=== PATIENT | female | born 1955 | race Caucasian/White ===

== ENCOUNTER 2021-11-19 12:58 | Outpatient (CLI) | payer OTHER, SELFPAY ==
--- NOTE | 2021-11-19 13:00 | MM_ITS ---
Patient: CONI HUDSON Facility:?[facility] Patient ID:?[id number] Site Patient ID:?[id number]. Site :?[id number] Study:?XRay-Breast Bilateral 3D W/CAD-11/19/2021 1:42:52 PM Ordering Physician:Norbert Sumner Final Report: BILATERAL MAMMOGRAM WITH COMPUTER-AIDED DETECTION AND TOMOSYNTHESIS TECHNIQUE: CC and MLO views were obtained. These mammographic images have been obtained using full-field digital technique. These mammographic images were interpreted with the benefit of computer-aided detection. Breast Tomosynthesis was used in this interpretation. COMPARISON FILM: 10/27/20, 10/16/19, 08/24/18. FINDINGS: There are scattered areas of fibroglandular density IMPRESSION: There is no radiographic evidence for malignancy. ASSESSMENT: BI-RADS Category 1: Negative RECOMMENDATION: Routine screening mammogram in 1 year. A lay language report of this examination will be provided to the patient. Jimbo Singleton M.D. Diagnostic/Musculoskeletal Radiologist [email or web address] MARYANNE/eduardo / be/Dictated by: Jimbo Singleton MD @ 11/22/2021 8:47:00 AM Signed by:?Jimbo Singleton MD @11/23/2021 8:01:53 AM (Electronic Signature)
== END 2021-11-19 12:59 | disposition home or self-care (01) ==
LOC: MAMMO 12:58
PROVIDERS: PCP Family Medicine; Visit Provider Family Medicine
DX: Z12.31 Encounter for screening mammogram for malignant neoplasm of breast
CPT/HCPCS: 77063; 77067

== ENCOUNTER 2022-12-02 07:40 | Outpatient (CLI) | payer MEDICARE, SELFPAY | END 2022-12-02 07:41 | disposition home or self-care (01) | LOC: NFLDREF 12:39 | PROVIDERS: PCP Family Medicine; Referring Provider Family Medicine; Visit Provider Family Medicine | DX: E78.5 Hyperlipidemia, unspecified (principal); R74.8 Abnormal levels of other serum enzymes; M85.80 Other specified disorders of bone density and structure, unspecified site | CPT/HCPCS: 80053; 80061; 82306 ==

== ENCOUNTER 2022-12-08 14:28 | Outpatient (CLI) | payer MEDICARE, SELFPAY ==
--- NOTE | 2022-12-08 14:40 | CRLHL7_ITS ---
For Patients: As a result of the Century Cures Act, medical imaging exams and procedure reports are released immediately into your electronic medical record. You may view this report before your referring provider. If you have questions, please contact your health care provider. BILATERAL SCREENING MAMMOGRAM WITH COMPUTER-AIDED DETECTION AND TOMOSYNTHESIS TECHNIQUE: CC and MLO views were obtained. These mammographic images have been obtained using full-field digital technique. These mammographic images were interpreted with the benefit of computer-aided detection. Breast Tomosynthesis was used in this interpretation. COMPARISON FILM: 11/19/21, 10/27/20, 10/16/19. FINDINGS: The breasts are heterogeneously dense, which may obscure small masses IMPRESSION: There is no radiographic evidence for malignancy. ASSESSMENT: BI-RADS Category 1: Negative RECOMMENDATION: Routine screening mammogram in 1 year. A lay language report of this examination will be provided to the patient. Christopher Michael M.D. Diagnostic Radiologist [email or web address] MARY/Dictated by: Christopher Michael MD @ 12/09/2022 2:47:00 PM (Electronically Signed)
== END 2022-12-08 14:29 | disposition home or self-care (01) ==
LOC: MAMMO 14:30
PROVIDERS: PCP Family Medicine; Visit Provider Family Medicine
DX: Z12.31 Encounter for screening mammogram for malignant neoplasm of breast (principal); R92.2 Inconclusive mammogram
CPT/HCPCS: 77063; 77067

== ENCOUNTER 2022-12-15 10:07 | Outpatient (CLI) | payer MEDICARE, SELFPAY ==
--- NOTE | 2022-12-15 08:37 | W.ANESCHARGE ---
Anesthesia Charges Start Date/Time Anesthesia Start Date: 12/15/22 Anesthesia Start Time: 11:07 Stop Date/Time Anesthesia Stop Date: 12/15/22 Anesthesia Stop Time: 11:45
--- NOTE | 2022-12-15 11:49 | W.ANESCHARGE ---
Anesthesia Charges Start Date/Time Anesthesia Start Date: 12/15/22 Anesthesia Start Time: 11:07 Stop Date/Time Anesthesia Stop Date: 12/15/22 Anesthesia Stop Time: 11:45
== END 2022-12-15 10:08 | disposition home or self-care (01) ==
LOC: OP CLINIC 10:09
PROVIDERS: PCP Family Medicine; Visit Provider Surgery
DX: Z86.010 Personal history of colon polyps (principal); K63.5 Polyp of colon
CPT/HCPCS: 45380; 45385; 811; 88305; J2704

== ENCOUNTER 2024-01-02 08:40 | Outpatient (CLI) | payer MEDICARE, SELFPAY ==
--- OUTSIDE RECORDS SUMMARY | 2024-01-05 08:36 | XMS_ITS | Referral Summary ---
Author Organization [place] Address [address] [place] [address] Care Team Providers Care Television Engineer Name Role Phone [facility]- Primary Care Provider Allergies No known active allergies Medications Medication Sig Dispensed Refills Start Date End Date Status simvastatin (ZOCOR) 20 MG tablet Take 20 mg by mouth daily 02/16/2019 Active Active Problems No known active problems Social History Tobacco Use Types Packs/Day Years Used Date Smoking Tobacco: Never Smokeless Tobacco: Never Tobacco Cessation:Counseling Given: No Alcohol Use Standard Drinks/Week Comments Yes 0 (1 standard drink = 0.6 oz pur e alcohol) socially Adolescent Education Answer Date Record ed Getting School Help Needed Not on file 02/12 Sex and Gender Information Value Date Recorded Sex Assigned at Not on file Gender Identity Not on file Sexual Orientation Not on file Last Filed Vital Signs Vital Sign Reading Time Taken Comments Blood Pressure 142/84 04/28/2019 11:13 AM GRANULATOR MACHINE OPERATOR Pulse 111 04/28/2019 11:13 AM GRANULATOR MACHINE OPERATOR Temperature 36.9 ??C (98.4 ??F) 04/28/2019 11:[address] Respiratory Rate 16 04/28/2019 11:13 AM GRANULATOR MACHINE OPERATOR Oxygen Saturation 98% 04/28/2019 11:13 AM GRANULATOR MACHINE OPERATOR Inhaled Oxygen Concentration - - Weight 72.1 kg (159 lb) 04/28/2019 11:13 AM GRANULATOR MACHINE OPERATOR Height - - Body Mass Index - - Plan of Treatment Not on file Care Teams Television Engineer Relationship Specialty Start Date End Date [facility]- [address] [place] [address] PCP - General 04/28/19
--- OUTSIDE RECORDS SUMMARY | 2024-01-05 08:36 | XMS_ITS | Clinical Summary ---
Author Organization [place] Address [address] [place] [address] Care Team Providers Care Court Operations Clerk Name Role Phone [facility]- Primary Care Provider Allergies No known [...] Comments Blood Pressure 142/84 04/28/2019 11:13 AM ARBOREAL SCIENTIST Pulse 111 04/28/2019 11:13 AM ARBOREAL SCIENTIST Temperature 36.9 ??C (98.4 ??F) 04/28/2019 11:[address] Respiratory Rate 16 04/28/2019 11:13 AM ARBOREAL SCIENTIST Oxygen Saturation 98% 04/28/2019 11:13 AM ARBOREAL SCIENTIST Inhaled Oxygen Concentration - - Weight 72.1 kg (159 lb) 04/28/2019 11:13 AM ARBOREAL SCIENTIST Height - - Body Mass Index - - Plan of Treatment Not on file Care Teams Court Operations Clerk Relationship Specialty Start Date End Date [facility]- [address] [place] [address] PCP - General 04/28/19
== END 2024-01-02 08:41 | disposition home or self-care (01) ==
LOC: NFLDREF 01-05 08:32
PROVIDERS: PCP Family Medicine; Referring Provider Family Medicine; Visit Provider Family Medicine
DX: E78.5 Hyperlipidemia, unspecified (principal); M85.89 Other specified disorders of bone density and structure, multiple sites; R79.89 Other specified abnormal findings of blood chemistry; R53.83 Other fatigue
CPT/HCPCS: 80053; 80061; 82306

== ENCOUNTER 2024-01-24 10:10 | Outpatient (CLI) | payer MEDICARE, SELFPAY ==
--- OUTSIDE RECORDS SUMMARY | 2024-01-24 10:13 | XMS_ITS | Referral Summary ---
Author Organization [place] Address [address] [place] [address] Care Team Providers Care Photograph Tinter Name Role Phone [facility]- Primary Care Provider Allergies No known [...] Comments Blood Pressure 142/84 04/28/2019 11:13 AM CUPOLA CHARGER INSULATION Pulse 111 04/28/2019 11:13 AM CUPOLA CHARGER INSULATION Temperature 36.9 ??C (98.4 ??F) 04/28/2019 11:[address] Respiratory Rate 16 04/28/2019 11:13 AM CUPOLA CHARGER INSULATION Oxygen Saturation 98% 04/28/2019 11:13 AM CUPOLA CHARGER INSULATION Inhaled Oxygen Concentration - - Weight 72.1 kg (159 lb) 04/28/2019 11:13 AM CUPOLA CHARGER INSULATION Height - - Body Mass Index - - Plan of Treatment Not on file Care Teams Photograph Tinter Relationship Specialty Start Date End Date [facility]- [address] [place] [address] PCP - General 04/28/19
--- OUTSIDE RECORDS SUMMARY | 2024-01-24 10:13 | XMS_ITS | Clinical Summary ---
Author Organization [place] Address [address] [place] [address] Care Team Providers Care Android Programmer Name Role Phone [facility]- Primary Care Provider Allergies No known active [...] Comments Blood Pressure 142/84 04/28/2019 11:13 AM MANAGER BEHAVIOR Pulse 111 04/28/2019 11:13 AM MANAGER BEHAVIOR Temperature 36.9 ??C (98.4 ??F) 04/28/2019 11:[address] Respiratory Rate 16 04/28/2019 11:13 AM MANAGER BEHAVIOR Oxygen Saturation 98% 04/28/2019 11:13 AM MANAGER BEHAVIOR Inhaled Oxygen Concentration - - Weight 72.1 kg (159 lb) 04/28/2019 11:13 AM MANAGER BEHAVIOR Height - - Body Mass Index - - Plan of Treatment Not on file Care Teams Android Programmer Relationship Specialty Start Date End Date [facility]- [address] [place] [address] PCP - General 04/28/19
--- NOTE | 2024-01-24 10:30 | CRLHL7_ITS ---
For Patients: As a result of the Century Cures Act, medical imaging exams and procedure reports are released immediately into your electronic medical record. You may view this report before your referring provider. If you have questions, please contact your health care provider. DXA BONE MINERAL DENSITY STUDY Reason for exam: Osteopenia. Current height (in): 64. Weight (lb): 158. Menopause age: 57. Ethnicity: White. 1. Have you had a previous hip or vertebral fracture? No. 2. Have you had any fractures during your adult life which did not result from significant trauma (e.g., auto accident)? No. 3. Did either of your parents have a hip fracture? No. 4. Do you smoke? No. 5. Have you ever taken Glucocorticoids? No. 6. Do you have rheumatoid arthritis? No. 7. Do you have secondary osteoporosis? No. 8. Do you drink 3 or more alcoholic drinks per day? No. 9. Are you being treated for osteoporosis? No. 10. Have you ever taken any of the following medications: Actonel, Evista, Fosamax, Miacalcin, Reclast, Boniva, Forteo, HRT (i.e. estrogen/hormone therapy), Protelos, Prolia, Vitamin D, Calcium, other ??? please specify. ANSWER: No. 11. Do you have any of the following medical conditions: Anorexia or bulimia, asthma or emphysema, end stage renal disease, hyperparathyroidism, any seizure disorders, cancer, inflammatory bowel diseases, hysterectomy, other ??? please specify. ANSWER: No. 12. What was your maximum height (inches)? 64. 13. Do you perform weight bearing exercise regularly? Yes. 14. Do you regularly consume dairy products? Yes. 15. Do you drink caffeinated beverages? Yes. 16. At what age did your period start? 17. 17. Are you premenopausal? No. 18. How many full term pregnancies have you had? Zero. 19. Have you ever missed your period for more than 6 months in a row (not including or menopause)? No. TECHNIQUE: Bone mineral density study was performed using the [employer]. FINDINGS: The results of the study expressed as bone mineral density (BMD) are as follows: Lumbar spine L1 to L3: BMD: 0.813 g/cm2. T-score: -1.9. Z-score: -0.1. Neck Left: BMD: 0.591 g/cm2. T-score: -2.3. Z-score: -0.7. Right: BMD: 0.529 g/cm2. T-score: -2.9. Z-score: -1.3. Total Left: BMD: 0.730 g/cm2. T-score: -1.7. Z-score: -0.4. Right: BMD: 0.712 g/cm2. T-score: -1.9. Z-score: -0.6. IMPRESSION: Osteoporosis. *Comparison exams done prior to 09/2019 were performed on different unit, [employer]. COMPARISON: Compared with scan of 11/12/2020, the bone mineral density has increased by 3.2 percent at the spine and decreased by 2.5 percent at the hip. Compared with scan of 08/27/2018, the bone mineral density has decreased by 3.5 percent at the spine and increased by 12.2 percent at the hip. RICKI MARES M.D. [email or web address] bM/Dictated by: Ricki Mares MD @ 01/25/2024 1:36:00 PM (Electronically Signed)
== END 2024-01-24 10:11 | disposition home or self-care (01) ==
LOC: RAD 10:11
PROVIDERS: PCP Family Medicine; Visit Provider Family Medicine
DX: M85.89 Other specified disorders of bone density and structure, multiple sites (principal); M81.0 Age-related osteoporosis without current pathological fracture
CPT/HCPCS: 77080

== ENCOUNTER 2024-02-07 11:06 | Outpatient (CLI) | payer MEDICARE, SELFPAY ==
--- OUTSIDE RECORDS SUMMARY | 2024-02-07 11:09 | XMS_ITS | Clinical Summary ---
Author Organization [place] Address [address] [place] [address] Care Team Providers Care Supervisor Poultry Farm Name Role Phone [facility]- Primary Care Provider Allergies No known active [...] Comments Blood Pressure 142/84 04/28/2019 11:13 AM SHUTTLE HAND Pulse 111 04/28/2019 11:13 AM SHUTTLE HAND Temperature 36.9 ??C (98.4 ??F) 04/28/2019 11:[address] Respiratory Rate 16 04/28/2019 11:13 AM SHUTTLE HAND Oxygen Saturation 98% 04/28/2019 11:13 AM SHUTTLE HAND Inhaled Oxygen Concentration - - Weight 72.1 kg (159 lb) 04/28/2019 11:13 AM SHUTTLE HAND Height - - Body Mass Index - - Plan of Treatment Not on file Care Teams Supervisor Poultry Farm Relationship Specialty Start Date End Date [facility]- [address] [place] [address] PCP - General 04/28/19
--- OUTSIDE RECORDS SUMMARY | 2024-02-07 11:09 | XMS_ITS | Referral Summary ---
Author Organization [place] Address [address] [place] [address] Care Team Providers Care Industrial Technologist Name Role Phone [facility]- Primary Care Provider Allergies No known active [...] Comments Blood Pressure 142/84 04/28/2019 11:13 AM FAMILY PRACTICE DOCTOR Pulse 111 04/28/2019 11:13 AM FAMILY PRACTICE DOCTOR Temperature 36.9 ??C (98.4 ??F) 04/28/2019 11:[address] Respiratory Rate 16 04/28/2019 11:13 AM FAMILY PRACTICE DOCTOR Oxygen Saturation 98% 04/28/2019 11:13 AM FAMILY PRACTICE DOCTOR Inhaled Oxygen Concentration - - Weight 72.1 kg (159 lb) 04/28/2019 11:13 AM FAMILY PRACTICE DOCTOR Height - - Body Mass Index - - Plan of Treatment Not on file Care Teams Industrial Technologist Relationship Specialty Start Date End Date [facility]- [address] [place] [address] PCP - General 04/28/19
--- NOTE | 2024-02-07 11:30 | CRLHL7_ITS ---
For Patients: As a result of the Century Cures Act, medical imaging exams and procedure reports are released immediately into your electronic medical record. You may view this report before your referring provider. If you have questions, please contact your health care provider. BILATERAL DIGITAL SCREENING MAMMOGRAM WITH COMPUTER-AIDED DETECTION AND TOMOSYNTHESIS CLINICAL HISTORY: Routine screening exam. COMPARISON: 12/08/22, 11/19/21, 10/27/20. TECHNIQUE: Digital mammogram in CC and MLO projections including computer-aided detection (CAD). Tomosynthesis was used in this interpretation. BREAST COMPOSITION: The breasts are heterogeneously dense, which may obscure small masses. FINDINGS: RIGHT Breast: Focal asymmetric density upper outer quadrant 7 cm from the nipple. LEFT Breast: No suspicious findings. IMPRESSION: RIGHT breast asymmetry/mass. RECOMMENDATIONS: Additional mammographic views of the RIGHT breast including 3D spot compression CC/MLO. RIGHT breast ultrasound may also be required. BI-RADS Category 0: Incomplete: Need Additional Imaging Evaluation and/or Prior Mammograms for Comparison [facility] will contact the patient for follow-up. A lay language report of this examination will be provided to the patient. Dictated by Christopher Michael MD @ 02/07/2024 12:34:07 PM codyj/Dictated by: Christopher Michael MD @ 02/07/2024 12:34:00 PM (Electronically Signed)
== END 2024-02-07 11:07 | disposition home or self-care (01) ==
LOC: MAMMO 11:07
PROVIDERS: PCP Family Medicine; Visit Provider Family Medicine
DX: Z12.31 Encounter for screening mammogram for malignant neoplasm of breast (principal); R92.333 Mammographic heterogeneous density, bilateral breasts; N63.10 Unspecified lump in the right breast, unspecified quadrant
CPT/HCPCS: 77063; 77067

== ENCOUNTER 2024-02-20 09:27 | Outpatient (CLI) | payer MEDICARE, SELFPAY ==
--- OUTSIDE RECORDS SUMMARY | 2024-02-20 09:29 | XMS_ITS | Clinical Summary ---
Author Organization [place] Address [address] [place] [address] Care Team Providers Care Data Modeler Name Role Phone [facility]- Primary Care Provider Allergies No known [...] Comments Blood Pressure 142/84 04/28/2019 11:13 AM DRAWING OPERATOR Pulse 111 04/28/2019 11:13 AM DRAWING OPERATOR Temperature 36.9 ??C (98.4 ??F) 04/28/2019 11:[address] Respiratory Rate 16 04/28/2019 11:13 AM DRAWING OPERATOR Oxygen Saturation 98% 04/28/2019 11:13 AM DRAWING OPERATOR Inhaled Oxygen Concentration - - Weight 72.1 kg (159 lb) 04/28/2019 11:13 AM DRAWING OPERATOR Height - - Body Mass Index - - Plan of Treatment Not on file Care Teams Data Modeler Relationship Specialty Start Date End Date [facility]- [address] [place] [address] PCP - General 04/28/19
--- OUTSIDE RECORDS SUMMARY | 2024-02-20 09:29 | XMS_ITS | Referral Summary ---
Author Organization [place] Address [address] [place] [address] Care Team Providers Care Director Of Consumer Affairs Name Role Phone [facility]- Primary Care Provider Allergies No known [...] Comments Blood Pressure 142/84 04/28/2019 11:13 AM LEAD SQL DEVELOPER Pulse 111 04/28/2019 11:13 AM LEAD SQL DEVELOPER Temperature 36.9 ??C (98.4 ??F) 04/28/2019 11:[address] Respiratory Rate 16 04/28/2019 11:13 AM LEAD SQL DEVELOPER Oxygen Saturation 98% 04/28/2019 11:13 AM LEAD SQL DEVELOPER Inhaled Oxygen Concentration - - Weight 72.1 kg (159 lb) 04/28/2019 11:13 AM LEAD SQL DEVELOPER Height - - Body Mass Index - - Plan of Treatment Not on file Care Teams Director Of Consumer Affairs Relationship Specialty Start Date End Date [facility]- [address] [place] [address] PCP - General 04/28/19
--- NOTE | 2024-02-20 09:45 | CRLHL7_ITS ---
For Patients: As a result of the Cures Act, medical imaging exams and procedure reports are released immediately into your electronic medical record. You may view this report before your referring provider. If you have questions, please contact your health care provider. DIGITAL DIAGNOSTIC RIGHT MAMMOGRAM USING TOMOSYNTHESIS AND COMPUTER-AIDED DETECTION RIGHT BREAST ULTRASOUND CLINICAL HISTORY: RIGHT breast mass/asymmetry. COMPARISON: 02/07/2024. TECHNIQUE: Digital RIGHT mammogram in two projections. Tomosynthesis and CAD were used in this interpretation. Real-time ultrasound imaging of RIGHT breast with imaging documentation. BREAST COMPOSITION: The breasts are heterogeneously dense, which may obscure small masses. FINDINGS: 3D spot compression CC/MLO RIGHT breast mammogram images submitted. Decreased conspicuity of the previously noted density in the upper outer quadrant. No architectural distortion or suspicious calcifications. Targeted RIGHT breast ultrasound performed at 11 o`clock 7 cm from the nipple. Normal dense fibroglandular tissue is present. No fluid collection or mass. IMPRESSION: No suspicious findings. No evidence of malignancy. Normal fibroglandular tissue. RECOMMENDATIONS: Annual BILATERAL screening mammography. Results and recommendations discussed with the patient. BI-RADS Category 2: Benign A lay language report of this examination will be provided to the patient. Dictated by Christopher Michael MD @ 02/20/2024 1:07:45 PM jj/Dictated by: Christopher Michael MD @ 02/20/2024 1:07:00 PM (Electronically Signed)
--- NOTE | 2024-02-20 10:15 | CRLHL7_ITS ---
For Patients: As a result of the Cures Act, medical imaging exams and procedure reports are released immediately into your electronic medical record. You may view this report before your referring provider. If you have questions, please contact your health care provider. PLEASE SEE DIGITAL DIAGNOSTIC RIGHT MAMMOGRAM PERFORMED SAME DAY CRL:moises de leon/Dictated by: Christopher Michael MD @ 02/20/2024 1:37:00 PM (Electronically Signed)
== END 2024-02-20 09:28 | disposition home or self-care (01) ==
LOC: MAMMO 09:28
PROVIDERS: PCP Family Medicine; Visit Provider Family Medicine
DX: N63.10 Unspecified lump in the right breast, unspecified quadrant (principal); R92.8 Other abnormal and inconclusive findings on diagnostic imaging of breast
CPT/HCPCS: 76642; 77065; G0279

== ENCOUNTER 2025-02-04 08:34 | Outpatient (CLI) | payer MEDICARE, SELFPAY | END 2025-02-04 08:35 | disposition home or self-care (01) | LOC: NFLDREF 02-06 15:54 | PROVIDERS: PCP Family Medicine; Referring Provider Family Medicine; Visit Provider Family Medicine | DX: E78.5 Hyperlipidemia, unspecified (principal); M81.0 Age-related osteoporosis without current pathological fracture; R79.89 Other specified abnormal findings of blood chemistry | CPT/HCPCS: 80053; 80061; 82306 ==

== ENCOUNTER 2025-02-07 10:08 | Outpatient (CLI) | payer MEDICARE, SELFPAY ==
--- NOTE | 2025-02-07 10:15 | CRLHL7_ITS ---
For Patients: As a result of the Century Cures Act, medical imaging exams and procedure reports are released immediately into your electronic medical record. You may view this report before your referring provider. If you have questions, please contact your health care provider. INDICATION: BILATERAL SCREENING MAMMOGRAM, ASYMPTOMATIC 69 Y/O FEMALE COMPARISON: 02/07/2024, 12/08/2022, 11/19/2021 TECHNIQUE: Digital mammogram in CC and MLO projections including computer-aided detection (CAD) and tomosynthesis. BREAST COMPOSITION: The breasts are heterogeneously dense, which may obscure small masses. FINDINGS: No suspicious findings. ASSESSMENT: BI-RADS 2 Benign RECOMMENDATION: Annual screening mammogram. A lay language report of this examination will be provided to the patient. Dictated by: Christopher Michael MD @ 02/07/2025 10:59:06 (Electronically Signed)
== END 2025-02-07 10:09 | disposition home or self-care (01) ==
LOC: MAMMO 10:08
PROVIDERS: PCP Family Medicine; Visit Provider Family Medicine
DX: Z12.31 Encounter for screening mammogram for malignant neoplasm of breast (principal); R92.333 Mammographic heterogeneous density, bilateral breasts
CPT/HCPCS: 77063; 77067